=== PATIENT | male | born 1985 | race Caucasian/White ===

== ENCOUNTER 2019-07-14 08:44 | Emergency (ER) | payer SELFPAY ==
[2019-07-14 08:44] VITALS: RESP 16
[2019-07-14 08:45] VITALS: BP 129/86; PULSE 74; RESP 18; TEMP 36.4; O2SAT 100; BMI 20.5
--- NOTE | 2019-07-14 08:48 | ED_ITS ---
Entered by Laura Hollis, acting as scribe for Akbar Chaidez DO HPI - Psych General: Chief Complaint: Psychiatric Symptoms Stated Complaint: stressed Time Seen by Provider: 07/14/19 08:49 [facility] ED PFSH: Social History Smoking and tobacco status: current every day smoker Current gender identity: Male Discharge Plan Discharge Patient Disposition: Home, Self-Care Clinical Impression: Depression Qualifiers: Depression Type: reactive depression Qualified Code(s): F32.9 - Major depressive disorder, single episode, unspecified Condition: Stable Discharge Orders: Discharge Order (Routine); Ordered 07/14/19 Ordered By: Alvaro Wu Discharge Diet: Usual diet Discharge Activity: Resume usual activity Patient Instructions: Depression (ED) Activity Restrictions/Additional Instructions: Go on over to behavioral health care for an assessment this morning. [facility] was called and notified of you coming over. Visit with a counselor talked about social services technician available. Discharge Date/Time: 07/14/19 09:35 Coding Level of Care Code ED Mail Handler for Chg Fwd The documentation recorded by the scribeBunny Bridget Annette, accurately reflects the service I personally performed and the decisions made by Dm nickerson Curtis L, DO Jul 14, 2019 08:44
[2019-07-14 08:50] VITALS: RESP 17
--- NOTE | 2019-07-14 09:14 | ED_ITS ---
HPI - General Adult General: Chief complaint: Psychiatric Symptoms Stated complaint: stressed Time Seen by Provider: 07/14/19 08:49 History of Present Illness: HPI narrative: Patient comes here via ambulance because of depression. Says he lost his job last week is having a hard time holding jobs down. Has no finances right now he does have an apartment amicable. Does have food and knows to have resources. Denies any suicidal or homicidal intentions. Said he would just like to get some help with his depression. Has been a patient [facility] over a year ago. Said he was and made for 6 years and has had a problem over the last year and a half or 2 just adjusting to social life. Does use marijuana recreationally. 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 MD complaint: Depression Onset (ago): month(s) Associated symptoms: Deny chest pain, dyspnea, headache(s), nausea, rash or vomiting Review of Systems Const: Denies: fever, chills or body aches Eyes: Denies: change in vision or blurry vision ENMT: Denies: throat pain or nasal congestion Card: Denies: chest pain or shortness of breath on exertion Resp: Denies: shortness of breath, productive cough or non-productive cough GI: Denies: abdominal pain, nausea or vomiting : Denies: difficulty urinating Musc: Denies: extremity pain Skin/Breast: Denies: rash Neuro: Denies: headache Psych: Reports: depression and hopelessness; Denies: anxiety, suicidal ideation or homicidal ideation Dat/Lymph: Denies: easy bruising PFSH ED PFSH: Social History Smoking and tobacco status: current every day smoker Physical Exam Const: COMMON NORMALS: no apparent distress, average body habitus and oriented x3 HENMT: COMMON NORMALS: normocephalic HEAD & SCALP: normal to inspection and normocephalic FACE & SINUS: normal facial exam Eye: COMMON NORMALS: conjunctivae normal GENERAL EYE: normal appearance of both eyes CONJUNCTIVA: Yes conjunctivae normal Neck/C-Spine: COMMON NORMALS: no JVD Chest: COMMONS NORMALS: inspection of chest normal Resp: COMMON NORMALS: normal respiratory effort and clear to auscultation bilaterally AUSCULTATION: clear to auscultation bilaterally Cardio: COMMON NORMALS: no JVD, regular rate and regular rhythm RATE: regular rate RHYTHM: regular rhythm GI: COMMON NORMALS: normal to inspection, nondistended, normoactive bowel sounds Extremity: COMMON NORMALS: normal to inspection and full ROM Neuro: COMMON NORMALS: oriented x3 Psych: COMMON NORMALS: mental status grossly normal and speech normal APPEARANCE: Yes grossly normal ATTITUDE: Yes calm ACTIVITY/MOTOR BEHAVIOR: Yes appropriate eye contact SPEECH: Yes normal speech MOOD & AFFECT: Yes flat affect THOUGHT CONTENT: Yes normal thought content ATTENTION/CONCENTRATION: Yes attention grossly intact INSIGHT: insight good JUDGEMENT: judgment good Course Vital Signs: Vital signs: Vital Signs Temperature 97.5 F L 07/14/19 08:45 Pulse Rate 74 07/14/19 08:45 Respiratory Rate 17 07/14/19 08:50 Blood Pressure 129/86 07/14/19 08:45 Pulse Oximetry 100 07/14/19 08:45 MDM - General Adult MDM Narrative: Medical decision making narrative: Discussed case with Dr. Chaidez Coding Level of Care Code ED Sales Operations Coordinator for Maryuri Sue
[2019-07-14 09:54] VITALS: RESP 17
== END 2019-07-14 09:35 | disposition home or self-care (01) ==
LOC: ER 09:47
PROVIDERS: Emergency Provider Nurse Practitioner Family
DX: F32.9 Major depressive disorder, single episode, unspecified (principal); F17.210 Nicotine dependence, cigarettes, uncomplicated
CPT/HCPCS: 12345; 99284

== ENCOUNTER → 2024-03-30 10:00 | Outpatient (BNVA) | payer SELFPAY | DX: R05.9 Cough, unspecified (principal); J45.909 Unspecified asthma, uncomplicated | CPT/HCPCS: 87400; 87426 ==

== ENCOUNTER → 2024-06-14 13:23 | Outpatient (BNVA) | payer SELFPAY | PROVIDERS: Visit Provider Emergency Medicine | DX: B34.9 Viral infection, unspecified (principal); R06.02 Shortness of breath; R91.8 Other nonspecific abnormal finding of lung field | CPT/HCPCS: 71046; 87400; 87426 ==

== ENCOUNTER 2024-12-07 11:41 | Emergency (ER) | payer SELFPAY ==
--- OUTSIDE RECORDS SUMMARY | 2024-12-07 11:46 | XMS_ITS | Encounter Summary ---
Author Organization [employer] Address [address] [place] [address] Care Team Providers Care Oracle Database Administrator Name Role Phone Unavailable Primary Care Provider Unavailabl e Encounter Details Date Type Department Care Team (Late st Contact Info) Description 12/06/2024 External Device Data [facility] Provider, Abstract NO ADDRESS ON FILE Social History Tobacco Use Types Packs/Day Years Used Date Smoking Tobacco: Every Day Cigarettes Smokeless Tobacco: Never Alcohol Use Standard Drinks/Week Comments No 0 (1 standard drink = 0.6 oz pur e alcohol) Sex and Gender Information Value Date Recorded Sex Assigned at Not on file 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
--- OUTSIDE RECORDS SUMMARY | 2024-12-07 11:46 | XMS_ITS | Encounter Summary ---
Author Organization [employer] Address 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
--- OUTSIDE RECORDS SUMMARY | 2024-12-07 11:46 | XMS_ITS | Encounter Summary ---
Author Organization [employer] Address [address] [place] [address] Care Team Providers Care Accounts Payable Or Receivable Clerk Name Role Phone Unavailable Primary Care Provider Unavailabl e Encounter Details Date Type Department Care Team (Late st Contact Info) Description 11/29/2024 External Device Data [facility]CTION Provider, Abstract NO ADDRESS ON FILE Social History Tobacco Use Types Packs/Day Years Used Date Smoking Tobacco: Every Day Cigarettes Smokeless Tobacco: Never Alcohol Use Standard Drinks/Week Comments No 0 (1 standard drink = 0.6 oz pur e alcohol) Sex and Gender Information Value Date Recorded Sex Assigned at Not on file 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
--- OUTSIDE RECORDS SUMMARY | 2024-12-07 11:47 | XMS_ITS | Clinical Summary ---
Author Organization [facility] Address [address] [place]: Epic Prelude ADT [place] [address] Care Team Providers Care Teletype Adjuster Name Role Phone Unavailable Primary Care Provider Unavailabl e Allergies No known active allergies Medications No known medications Active Problems No known active problems Encounters Date Type Department Care Team Description 12/06/2024 External Device Data [facility] ABSTRACTION Provider, Abstract 12/06/2024 External Device Data [facility] ABSTRACTION Provider, Abstract 12/06/2024 External Device Data [facility] ABSTRACTION Provider, Abstract 11/29/2024 External Device Data [facility] ABSTRACTION Provider, Abstract 11/23/2024 External Device Data [facility] ABSTRACTION Provider, Abstract 11/23/2024 External Device Data [facility] ABSTRACTION Provider, Abstract 10/26/2024 External Device Data [facility] ABSTRACTION Provider, Abstract 10/18/2024 External Device Data [facility] ABSTRACTION Provider, Abstract 10/18/2024 External Device Data [facility] ABSTRACTION Provider, Abstract 09/28/2024 External Device Data [facility] ABSTRACTION Provider, Abstract 09/27/2024 External Device Data [facility] ABSTRACTION Provider, Abstract 09/13/2024 External Device Data [facility] ABSTRACTION Provider, Abstract from Last 3 Months Social History Tobacco Use Types Packs/Day Years Used Date Smoking Tobacco: Every Day Cigarettes Smokeless Tobacco: Never Tobacco Cessation:Ready to Q uit: Not Asked; Counseling Given: Not Answered Alcohol Use Standard Drinks/Week Comments No 0 (1 standard drink = 0.6 oz pur e alcohol) Sex and Gender Information Value Date Recorded Sex Assigned at Not on file 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 Gender Identity Not on file Sexual Orientation Not on file Last Filed Vital Signs Vital Sign Reading Time Taken Comments Blood Pressure 120/84 12/18/2023 3:06 PM CDT Pulse 70 12/16/2023 1:15 PM CDT Temperature 36.5 C (97.7 F) 12/16/2023 12:17 PM CDT Respiratory Rate 18 12/16/2023 12:17 PM CDT Oxygen Saturation 99% 12/16/2023 1:15 PM CDT Inhaled Oxygen Concentration - - Weight 61.2 kg (135 lb) 12/18/2023 3:06 PM CDT Height 174 cm (5' 8.5 ) 12/18/2023 3:06 PM CDT Body Mass Index 20.23 12/18/2023 3:06 PM CDT Plan of Treatment Health Maintenance Due Date Last Done Comments HPV VACCINES (1 - Male 3-dose series) 02/18/1999 DTAP/TDAP/TD VACCINES (1 - Tdap) 02/18/2003 HEPATITIS B VACCINES (1 of 3 - 19+ 3-dose series) 02/08 INFLUENZA VACCINE (#1) 2024
--- OUTSIDE RECORDS SUMMARY | 2024-12-07 11:47 | XMS_ITS | Encounter Summary ---
Author Organization [employer] Address 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
[2024-12-07 11:59] VITALS: BP 122/80; PULSE 86; RESP 16; TEMP 36.8; O2SAT 99; BMI 19.8
--- NOTE | 2024-12-07 14:18 | ED_ITS ---
HPI - Abdominal Pain General: Chief Complaint: Abdominal Pain Stated Complaint: lump on waistline Time Seen by Provider: 12/07/24 14:06 History of Present Illness: 39-year-old male who presents to the ED with right groin pain that began prior to arrival. Patient states he felt a hernia pop up today while sweeping sawdust under a machine at work and began experiencing pain afterwards. He states that he does do heavy lifting at work. Denies any nausea, vomiting, or radiation of pain. He also denies any previous history of hernias or abdominal surgeries. No other complaints this time. Associated Symptoms: Denies chills, fever(s), nausea and vomiting Related Data Home Medications ?Medication ?Instructions ?Recorded ?Confirmed ibuprofen 200 mg tablet (Advil) 600 mg PO Q6H PRN Pain 12/07/24 12/07/24 Previous Rx's ?Medication ?Instructions ?Recorded albuterol sulfate 2.5 mg/3 mL 2.5 mg (3 mL) inhalation QID PRN 10/03/24 (0.083 %) solution for nebulization shortness of breat h or wheezing #90 mL albuterol sulfate 90 mcg/actuation 2 puff inhalation 6 XD shortness of 10/03/24 aerosol inhaler (Ventolin HFA) breath or wheezing #8.5 grams albuterol sulfate 2.5 mg/3 mL 2.5 mg (3 mL) inhalation QID PRN 12/07/24 (0.083 %) solution for nebulization shortness of breat h or wheezing #180 mL Allergies Allergy/AdvReac Type Severity Reaction Status Date / Time latex Allergy ALGY-Rash Verified 07/30/24 11:37 Review of Systems Const: Denies: fever(s) or chills Card: Denies: chest pain Resp: Denies: dyspnea GI: Reports: abdominal pain; Denies: nausea or vomiting : Denies: difficulty urinating Musc: Denies: neck pain, back pain, extremity pain, extremity swelling or joint pain Skin/Breast: Denies: rash or pruritus Neuro: Denies: headache(s), numbness in extremities, weakness in extremities or sensory changes Psych: Denies: anxiety or depression PFSH ED PFSH: Medical History Smoking addiction Social History Smoking and tobacco/nicotine status: current every day tobacco/nicotine user Current gender identity: Male Physical Exam Const: COMMON NORMALS: no acute distress, average body habitus, patient oriented x3 and no limitations HENMT: COMMON NORMALS: normocephalic and atraumatic HEAD & SCALP: normocephalic and atraumatic Neck/C-Spine: COMMON NORMALS: full ROM and no lymphadenopathy Lymph: LYMPHATIC: no lymphadenopathy noted Chest: COMMONS NORMALS: normal inspection of the chest and normal palpation of entire chest wall Resp: COMMON NORMALS: normal respiratory effort and clear to auscultation bilaterally AUSCULTATION: clear to auscultation bilaterally Cardio: COMMON NORMALS: regular rate and regular rhythm RATE: regular rate RHYTHM: regular rhythm GI: COMMON NORMALS: Normal to inspection, nondistended, normoactive bowel sounds present and No hepatosplenomegaly present PALPATION: Yes No hepatosplenomegaly present : COMMON NORMALS: Yes no CVA tenderness BLADDER/KIDNEY EXAM: Yes no CVA tenderness Back/Pelvis: COMMON NORMALS: no CVA tenderness THORACIC SPINE/UPPER BACK: Yes normal to inspection and Yes thoracic ROM normal Extremity: COMMON NORMALS: normal to inspection, full ROM and capillary refill normal Neuro: COMMON NORMALS: patient oriented x3 Psych: COMMON NORMALS: mental status grossly normal, Normal thought process present, cooperative, normal affect and speech normal SPEECH: Yes normal speech THOUGHT PROCESS: Normal thought process present Skin: COMMON NORMALS: no rashes or lesions noted and no wounds GENERAL SKIN EXAM: no rashes or lesions noted Procedures Procedure(s): Hernia reduction right groin Course Vital Signs: Vital signs: Vital Signs Temperature 98.3 F 12/07/24 11:59 Pulse Rate 86 12/07/24 11:59 Respiratory Rate 16 12/07/24 11:59 Blood Pressure 122/80 12/07/24 11:59 Pulse Oximetry 99 12/07/24 11:59 Oxygen Delivery Me thod Room Air 12/07/24 11:59 MDM - Abdominal Pain Medical Decision Making Patient is a 39-year-old gentleman with right inguinal hernia, status post reduction at the bedside without issues. No longer has right inguinal bulge. Given the circumstances, risk of retracting again, discussed with him abdominal binder, no lifting, and following up with a surgeon. Patient states understanding and will follow-up with the surgeon. Of note, he is working a physical labor job, lifting, he is not having any chest pain, or increasing shortness of breath. He would like a refill on his albuterol aerosol, which was sent to the pharmacy. Medical Records I reviewed the patient's medical records. No radiology studies performed this visit Discharge Plan Discharge Patient Disposition: Home Clinical Impression: Hernia, inguinal, right Condition: Stable Prescriptions: New albuterol sulfate 2.5 mg /3 mL (0.083 %) solution for nebulization 2.5 mg inhalation QID PRN (Reason: shortness of breath or wheezing) Qty: 180 0RF No Action albuterol sulfate 2.5 mg /3 mL (0.083 %) solution for nebulization 2.5 mg inhalation QID PRN (Reason: shortness of breath or wheezing) Qty: 90 2RF albuterol sulfate [Ventolin HFA] 90 mcg/actuation HFA aerosol inhaler 2 puff inhalation 6XD Qty: 8.5 1RF ibuprofen [Advil] 200 mg Tablet 600 mg PO Q6H PRN (Reason: Pain) Discharge Orders: Discharge ED (Routine); Ordered 12/07/24 Ordered By: Alison Brandon Referrals: Mike Chaudhry MD [Physician, General Surgery] Referral Note: Right inguinal hernia Discharge Diet: Usual diet Discharge Activity: Limit activity as instructed Patient Instructions: Patient Portal & Toro Instructions Activity Restrictions/Additional Instructions: No lifting over a gallon of milk x 2 weeks. Further instructions as per surgeon Follow-up with surgeon as referred above. Call for appointment. Return to ED for worsening pain, worsening bulge returning, fever greater than 100.4 ?F. Stand Alone Forms: Work/School Release Print Language: Slovenian Coding Level of Care Code ED Jewel Bearing Maker for Maryuri Sue
--- NOTE | 2024-12-07 14:26 | PC.PHAR ---
Patient states he is almost out of his nebulizer solution and his inhaler.
== END 2024-12-07 16:14 | disposition home or self-care (01) ==
PROVIDERS: Emergency Provider Physician Assistant
DX: K40.90 Unilateral inguinal hernia, without obstruction or gangrene, not specified as recurrent (principal); Z72.0 Tobacco use
CPT/HCPCS: 99283

== ENCOUNTER 2025-02-05 08:09 | Emergency (ER) | payer SELFPAY ==
[2025-02-05 08:10] VITALS: BP 136/86; PULSE 91; RESP 23; TEMP 36.5; O2SAT 97; BMI 19.8
--- OUTSIDE RECORDS SUMMARY | 2025-02-05 08:15 | XMS_ITS | Clinical Summary ---
Author Organization [facility] Address [address] [place]: Epic Prelude ADT [place] [address] Care Team Providers Care Pressroom Foreman Name Role Phone Unavailable Primary Care Provider Unavailabl e Allergies No known active allergies Medications No known medications Active Problems No known active problems Encounters Date Type Department Care Team Description 12/27/2024 External Device Data [facility] ABSTRACTION Provider, Abstract 12/20/2024 5:12 PM CDT - 12/20/2024 11:59 PM CDT Hospital Encounter [facility] [address] [place] [address] Karthik Jacobs MD Discharge Disposition: Home or Self Care 12/15/2024 Orders Only [facility] Admitting [address] [facility] [facility] [place] [address] Karthik Jacobs MD Personal history of DVT (deep vein thrombosis) (Primary Dx) 12/06/2024 External Device Data ST[facility] ABSTRACTION Provider, [...] drink = 0.6 oz pur e alcohol) Feeling Safe Answer Date Recorded Are you in a relationship wi th someone who hurts you emotionally and/or physically? 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 Gender Identity Not on file Sexual Orientation [...] Health Maintenance Due Date Last Done Comments DTAP/TDAP/TD VACCINES (1 - Tdap) 02/18/2003 HEPATITIS B VACCINES (1 of 3 - 19+ 3-dose series) 02/08 HPV VACCINES (1 - 3-dose SCDM series) 02/18/2011 INFLUENZA VACCINE (#1) 2024 Procedures Procedure Name Priority Date/Time Associated Diagnosis Comments US VENOUS DOPPLER LEG BILATERAL Routine 12/20/2024 5:40 PM CDT Personal history of DVT (deep vein thrombosis) from Last 3 Months Results * US VENOUS DOPPLER LEG BILATERAL (12/20/2024 5:40 PM CDT) Anatomical Region Laterality Modality Lower Extremity Ultrasound 12/20/2024 5:22 PM CDT Narrative 12/21/2024 7:35 AM CDT [facility] Radiology Services - Noninvasive Vascular [address] [address] Noninvasive Vascular Lab Venous Exam Complete Lower Extremity Duplex Patient: Karthik Novak Study ID: [id number] Gender: M : 1985 Age: 39 Room: Height: Weight: BSA: Pt status: Outpatient Study Date: 12/20/2024 Study Time: 05:22:38 PM BSA: Ordering: Karthik Jacobs Yuliana Interpreting:Mike Hodges Station Cook: Jessica Burgess Summary Doppler venous of the lower extremities demonstrates flow which is spontaneous, phasic and augments well. Competence is demonstrated. No pulsatility is noted. Imaging of the bilateral extremities demonstrated compressibility for the deep and superficial systems. No intraluminal echoes are noted. Impression: No evidence of deep or superficial venous thrombosis involving the right lower extremity and left lower extremity. Study data: Complete lower extremity venous duplex evaluation. Doppler flow study including spectral analysis, color and person scale imaging. Location: Vascular laboratory. Patient status: Outpatient. Study status: Routine. Procedure: A vascular evaluation was performed. Image quality was good. Prepared and Electronically Authenticated Mike Hodges Confirmed 12/21/2024 07:35 Procedure Note Mike Hodges MD - 12/21/2024 [facility] Radiology Services - Noninvasive Vascular [address] [address] Noninvasive Vascular Lab Venous Exam Complete Lower Extremity Duplex Patient: Karthik Novak Study ID: [id number] Gender: M : 1985 Age: 39 Room: Height: Weight: BSA: Pt status: Outpatient Study Date: 12/20/2024 Study Time: 05:22:38 PM BSA: Ordering: Karthik Jacobs Interpreting:Mike Hodges Station Cook: Jessica Burgess Summary Doppler venous of the lower extremities demonstrates flow which is spontaneous, phasic and augments well. Competence is demonstrated. No pulsatility is noted. Imaging of the bilateral extremities demonstrated compressibility for the deep and superficial systems. No intraluminalechoes are noted. Impression: No evidence of deep or superficial venous thrombosis involving the rightlower extremity and left lower extremity. Study data: Complete lower extremity venous duplex evaluation.Doppler flow study including spectral analysis, color and person scale imaging. Location: Vascular laboratory. Patient status: Outpatient. Study status: Routine. Procedure: A vascular evaluation was performed.Image quality was good. Prepared and Electronically Authenticated Mike Hodges Confirmed 12/21/2024 07:35 Karthik Jacobs MD ORDERABLES Final Re sult from Last 3 Months [facility]
--- NOTE | 2025-02-05 08:20 | ECG_ITS ---
[facility] Pat Name: Karthik Novak Department: Room: Gender: Male Talent Acquisition Manager: : 1985 Requested By: Marissa Huddleston Order Number: [id number] Olivera MD: Umberto Thompson M.D. Measurements Intervals [place] Rate: 86 P: 88 [place]: 174 QRS: 88 QRSD: 76 T: 79 QT: 320 QTc: 384 Interpretive Statements SINUS RHYTHM RIGHT ATRIAL ENLARGEMENT [0.3mV P-WAVE] No previous ECG available for comparison Electronically Signed On 02-05-2025 14:38:44 CDT by Umberto Thompson M.D. [id number]
--- NOTE | 2025-02-05 08:20 | XRR_ITS ---
PROCEDURE INFORMATION: Exam: XR Chest Exam date and time: 02/05/2025 8:25 AM Age: 39 years old Clinical indication: Shortness of breath TECHNIQUE: Imaging protocol: Radiologic exam of the chest. Views: 1 view. COMPARISON: CR XR chest 2V* [id number] 06/14/2024 1:25 PM FINDINGS: Lungs: The lungs are hyperinflated but clear. Pleural spaces: Unremarkable. No pleural effusion. No pneumothorax. Heart/Mediastinum: Unremarkable. No cardiomegaly. Bones/joints: Unremarkable. XR/XR chest 1V portable [id number] IMPRESSION: 1. Lung hyperinflation.
--- NOTE | 2025-02-05 08:21 | ED_ITS ---
HPI - SOB/Dyspnea General: Chief Complaint: Shortness of Breath/Dyspnea Stated Complaint: sob Time Seen by Provider: 02/05/25 08:18 History of Present Illness: HPI Narrative: 39-year-old male with a history of asthm a who presents emergency room shortness of breath. He tried using his Hailer and it was empty. Out of his nebulizer. No fevers. No chest pain. No altered mental status. No nausea vomiting Related Data Home Medications ?Medication ?Instructions ?Recorded ?Confirmed ibuprofen 200 mg tablet (Advil) 600 mg PO Q6H PRN Pain 12/07/24 12/07/24 Previous Rx's ?Medication ?Instructions ?Recorded albuterol sulfate 2.5 mg/3 mL 2.5 mg (3 mL) inhalation QID PRN 10/03/24 (0.083 %) solution for nebulization shortness of breat h or wheezing #90 mL albuterol sulfate 90 mcg/actuation 2 puff inhalation 6 XD shortness of 10/03/24 aerosol inhaler (Ventolin HFA) breath or wheezing #8.5 grams albuterol sulfate 2.5 mg/3 mL 2.5 mg (3 mL) inhalation QID PRN 12/07/24 (0.083 %) solution for nebulization shortness of breat h or wheezing #180 mL albuterol sulfate 2.5 mg/0.5 mL 2.5 mg (0.5 mL) inhala tion Q6H PRN 02/05/25 solution for nebulization shortness of breath or wheez ing #30 ea albuterol sulfate 90 mcg/actuation 2 inh inhalation Q4 H #6.7 grams 02/05/25 aerosol inhaler (Ventolin HFA) prednisone 20 mg tablet 60 mg (3 x 20 mg) PO DAILY 5 days 02/05/25 #15 tabs Allergies Allergy/AdvReac Type Severity Reaction Status Date / Time latex Allergy ALGY-Rash Verified 07/30/24 11:37 Review of Systems Narrative: Constitutional symptoms: Negative except as documented in HPI. Skin symptoms: Negative except as documented in HPI. Eye symptoms: Negative except as documented in HPI. ENMT symptoms: Negative except as documented in HPI. Respiratory symptoms: Negative except as documented in HPI. Cardiovascular symptoms: Negative except as documented in HPI. Gastrointestinal symptoms: Negative except as documented in HPI. Genitourinary symptoms: Negative except as documented in HPI. Musculoskeletal symptoms: Negative except as documented in HPI. Neurologic symptoms: Negative except as documented in HPI. Psychiatric symptoms: Negative except as documented in HPI. Endocrine symptoms: Negative except as documented in HPI. PFSH ED PFSH: Medical History Smoking addiction Social History Smoking and tobacco/nicotine status: current every day tobacco/nicotine user Current gender identity: Male Physical Exam Narrative: EXAM NARRATIVE: General: Alert, no acute distress. Skin: Warm, dry. Head: Normocephalic, atraumatic. Neck: Supple, trachea midline. Eye: Extraocular movements are intact. Ears, nose, mouth and throat: Oral mucosa moist. Cardiovascular: Regular rate and rhythm, Normal peripheral perfusion. Respiratory: coarse, scattered wheeze, mild increased wob. tachypnea, breath sounds are equal, Symmetrical chest wall expansion. Gastrointestinal: Soft, Nontender, Non distended Musculoskeletal: Normal ROM, no deformity. Neurological: Alert and oriented, No focal neurological deficit observed. Psychiatric: Cooperative, appropriate mood & affect. Course Vital Signs: Vital signs: Vital Signs Temperature 97.7 F 02/05/25 08:10 Pulse Rate 77 02/05/25 08:44 Respiratory Rate 22 H 02/05/25 08:35 Blood Pressure 136/86 02/05/25 08:10 Pulse Oximetry 95 02/05/25 08:35 Oxygen Delivery Me thod Room Air 02/05/25 08:35 MDM - SOB/Dyspnea Medical Decision Making Differential diagnosis for patient with shortness of breath includes but is not limited to and based on the above HPI, review of systems and physical exam: Pneumonia. Bronchitis. Asthma or COPD with acute exacerbation. Acute coronary syndrome / IA. Pulmonary embolism. Anxiety. Congestive heart failure. Viral infections including influenza and Covid-19. Atrial fibrillation. Anxiety. Pleural effusion. Pneumothorax. Orders placed to evaluate differential diagnosis based on the above differential, HPI and physical exam Chest x-ray: Hyperexpanded. No infiltrates. No pneumothorax. Films were interpreted by myself the emergency room provider and pending final radiology review. I reviewed the patient's medical record. Reexamination: Patient appears to be doing much better. Wheeze has improved significantly. He says he feels much better. No oxygen requirements. Assessment and plan: COPD exacerbation ?DuoNeb, albuterol updrafts. IV Solu-Medrol. IV Zofran. - Discharged home - Discussed plan with patient. Answered any questions. - Evaluation and treatment of this problem were appropriate in the emergency setting. XR interpretation done by ED provider, pending radiology final review Discharge Plan Discharge Patient Disposition: Home Clinical Impression: Asthma exacerbation Condition: Stable Prescriptions: New prednisone 20 mg tablet 60 mg PO DAILY 5 Days Qty: 15 0RF albuterol sulfate [Ventolin HFA] 90 mcg/actuation HFA aerosol inhaler 2 inh inhalation Q4H Qty: 6.7 0RF Rx Instructions: Please schedule every 4 hours for the next 3 days with up to every every 2 as needed. Please provide patient with a spacer/AeroChamber albuterol sulfate 2.5 mg/0.5 mL solution for nebulization 2.5 mg inhalation Q6H PRN (Reason: shortness of breath or wheezing) Qty: 30 0RF No Action albuterol sulfate 2.5 mg /3 mL (0.083 %) solution for nebulization 2.5 mg inhalation QID PRN (Reason: shortness of breath or wheezing) Qty: 90 2RF albuterol sulfate [Ventolin HFA] 90 mcg/actuation HFA aerosol inhaler 2 puff inhalation 6XD Qty: 8.5 1RF albuterol sulfate 2.5 mg /3 mL (0.083 %) solution for nebulization 2.5 mg inhalation QID PRN (Reason: shortness of breath or wheezing) Qty: 180 0RF ibuprofen [Advil] 200 mg Tablet 600 mg PO Q6H PRN (Reason: Pain) Discharge Orders: Discharge ED (Routine); Ordered 02/05/25 Ordered By: Marissa Bowles Discharge Diet: Usual diet Discharge Activity: Increase activity as tolerated Patient Instructions: Asthma (ED), Opioid Safety, Pain Management, Patient Portal & [facility] Instructions Activity Restrictions/Additional Instructions: Thank you for choosing [facility] for your healthcare needs today. You have been screened and evaluated and felt safe for discharge. Health conditions do change or evolve sometimes and as such it is important that you follow up with your Primary Doctor to be re checked, 3-5 days is a general good time frame for follow up. You are always welcome to return to the ED for re assessment if your symptoms are worsening or you have new concerns Print Language: Kazakh Coding Level of Care Code ED Division Order Analyst for Maryuri Sue
[2025-02-05] MEDS: methylPREDNISolone sod succ 125 mg/2 mL INJ IVP (08:27)
[2025-02-05] MEDS: ondansetron 2 mg/ML SDV 2 mL 4 MG IVP (08:29)
[2025-02-05 08:35] VITALS: PULSE 80; RESP 22; O2SAT 95
[2025-02-05 08:44] VITALS: PULSE 77
[2025-02-05 09:05] VITALS: BP 116/90; PULSE 97; O2SAT 98
[2025-02-05 09:06] VITALS: BP 116/90; PULSE 96; O2SAT 98
== END 2025-02-05 09:07 | disposition home or self-care (01) ==
PROVIDERS: Emergency Provider Emergency Medicine
DX: J45.901 Unspecified asthma with (acute) exacerbation (principal); Z72.0 Tobacco use
CPT/HCPCS: 71045; 93005; 94640; 96374; 96375; 99284; J2405; J2919; J7613; J9999